=== PATIENT | male | born 1975 | race Caucasian/White ===

== ENCOUNTER → 2019-09-23 16:49 | Outpatient (CLI) | payer OTHER, SELFPAY ==
--- NOTE | 2019-09-23 16:59 | RAD_ITS ---
STUDY: X-RAY - RIGHT FOOT CLINICAL: Male, 43 years old. Right foot pain, 1st MTP joint mostly TECHNIQUE: 3 view(s) of the foot. COMPARISON: None. FINDINGS: Normal talus, calcaneus, and tarsal bones. Mild calcaneal spurring. Normal visualized subtalar, talonavicular, calcaneocuboid, tarsal and tarsometatarsal articulations. Normal metatarsi. Degenerative changes and narrowing at the metatarsophalangeal joint of the great toe. Normal tibial and fibular sesamoid bones. Normal interphalangeal joint of the great toe. Normal phalanges of the great toe. Normal second through fifth metatarsophalangeal joints. Normal interphalangeal joints and phalanges of the lesser toes. Soft tissue edema of the first toe. RAD/Foot min 3 Views IMPRESSION: Degenerative changes and narrowing at the metatarsophalangeal joint of the great toe. Electronically Signed: Brijesh Brooke DO at 23:49 EST Tel [phone], Service support ,
--- NOTE | 2019-09-23 16:59 | RAD_ITS ---
STUDY: X-RAY - RIGHT HAND REASON FOR EXAM: Male, 43 years old. Right hand pain and swelling, no injury TECHNIQUE: 3 view(s) of the hand. COMPARISON: None. FINDINGS: Normal radiocarpal articulation. Normal distal radioulnar joint. Normal visualized carpal bones. Normal carpal articulations Normal carpometacarpal articulation of the thumb. Normal second through fifth carpometacarpal joints. Normal metacarpi. Normal metacarpophalangeal joint of the thumb. Normal interphalangeal joint of the thumb. Normal proximal and distal phalanges of the thumb. Normal metacarpophalangeal joints of the second through fifth fingers. Normal proximal and distal interphalangeal joints of the second through fifth fingers. Normal phalanges of the second through fifth fingers. The soft tissue structures are unremarkable. RAD/Hand Min 3 Views IMPRESSION: Normal x-ray examination of the hand. Electronically Signed: Brijesh Brooke DO at 23:51 EST Tel [phone], Service support ,
[2019-09-23 17:55] LABS: Erythrocyte Sedimentation Rate 7 mm/hr (0-15)
[2019-09-23 18:15] LABS: Hemoglobin A1c 5.9 % (4.2-6.3)
[2019-09-23 18:30] LABS: AST(SGOT) 14 U/L (15-37); Alanine Aminotransfer ALT/SGPT 30 U/L (16-61); Albumin, Serum 3.8 g/dL (3.2-5.0); Alkaline Phosphatase 70 U/L (45-117); Anion Gap 5 (5-15); BUN 15 mg/dL (7-18); BUN/Creat Ratio 11.9 RATIO (10-20); CRP < 2.90 mg/L (0.0-3.0); Calcium,Total 9.3 mg/dL (8.5-10.1); Chloride 106 mmol/L (98-107); Creatinine, Serum 1.26 mg/dL (0.70-1.30); EST Glomerular Filtration Rate 66 mL/min (>60); Est Glom Filt Rate - Afr Amer 80 mL/min (>60); Globulin 3.9 g/dL (2.2-4.2); Glucose 99 mg/dL (74-106); Potassium 3.4 mmol/L (3.5-5.1); Protein, Total 7.7 g/dL (6.4-8.2); Rheumatoid Factor < 10.0 IU/mL (<15); Sodium Level 140 mmol/L (136-145); Uric Acid 5.3 mg/dL (3.5-7.2)
[2019-09-26 09:23] LABS: CCP IgG Antibodies 8 units (0-19)
== END ==
PROVIDERS: PCP Family Medicine; Referring Provider Family Medicine; Visit Provider Family Medicine
DX: M19.90 Unspecified osteoarthritis, unspecified site (principal); M25.50 Pain in unspecified joint; I10 Essential (primary) hypertension; R73.01 Impaired fasting glucose; M79.671 Pain in right foot; M79.641 Pain in right hand
CPT/HCPCS: 36415; 73130; 73630; 80053; 83036; 84550; 85652; 86140; 86200; 86431

== ENCOUNTER 2020-01-23 08:50 | Day surgery (SDC) | payer MEDICAID, SELFPAY ==
[2020-01-23] VITALS (8 sets, daily range): BP systolic 121–152; BP diastolic 72–91; PULSE 68–85; RESP 16–18; TEMP 36.6–36.9; O2SAT 93–100; BMI 27.1
[2020-01-23 09:14] LABS: Absolute Lymphocyte Count 2.48 X10^3/uL (0.83-4.51); Absolute Neutrophil Count 4.8 X10^3/uL (2.0-7.7); Basophil# 0.05 X10^3/uL; Basophil% 0.6 % (0-1); Eosinophil# 0.53 X10^3/uL; Eosinophils% 6.3 % (0-5); Hemoglobin 15.3 g/dL (13.0-16.5); Lymphocyte # 2.48 X10^3/ul (4.0); Lymphocyte % 29.3 % (19-41); Mean Corpuscular Volume 88.2 fL (80-94); Mean Platelet Vol. 9.5 fl (6.2-12.0); Monocyte# 0.53 X10^3/uL; Monocyte% 6.3 % (0-10); NRBC Flagged by Analyzer 0 % (0-5); Neutrophil # 4.83 X10^3/uL (2.7-7.7); Platelet Count 362 K/mm3 (150-450); RBC Distribution Width CV 12.5 % (11.6-14.6); RBC Distribution Width SD 40.8 fl (35.1-43.9); White Blood Count 8.5 K/mm3 (4.4-11.0)
[2020-01-23 09:29] LABS: AST(SGOT) 17 U/L (15-37); Alanine Aminotransfer ALT/SGPT 33 U/L (16-61); Alkaline Phosphatase 73 U/L (45-117); Anion Gap 5 (5-15); BUN 12 mg/dL (7-18); BUN/Creat Ratio 9.2 RATIO (10-20); Calcium,Total 9.4 mg/dL (8.5-10.1); Chloride 102 mmol/L (98-107); EST Glomerular Filtration Rate 63 mL/min (>60); Est Glom Filt Rate - Afr Amer 77 mL/min (>60); Globulin 4.2 g/dL (2.2-4.2); Glucose 104 mg/dL (74-106); Potassium 3.6 mmol/L (3.5-5.1); Protein, Total 8.2 g/dL (6.4-8.2); Sodium Level 137 mmol/L (136-145)
[2020-01-23] MEDS: Lactated Ringers 1,000 ML 75 ML IV (09:50)
[2020-01-23] MEDS: Cefazolin 2 GM in 0.9% Normal Saline 100 ML IV (10:22)
--- NOTE | 2020-01-23 10:34 | RAD_ITS ---
STUDY: X-RAY - RIGHT FOOT CLINICAL: Arthrodesis of the first metatarsophalangeal joint. TECHNIQUE: 3 intraoperative images of the foot. COMPARISON: Radiographs 09/23/2019. FINDINGS: There is arthrodesis of the first metatarsophalangeal joint bridged with an orthopedic plate and screws. 61.4 seconds of fluoroscopy time was used. Electronically Signed: Den Adhikari MD at 15:04 EDT Tel , Service support , RAD/Foot 2 Views
[2020-01-23] MEDS: Bupivacaine Mpf 0.5% 30 ML VIAL (10:35)
--- NOTE | 2020-01-23 12:33 | PCM.DC.POD ---
Discharge Diet: No Restrictions Discharge Activity: Use Walker, - - Use knee roller Weight Bearing Status: No weight bearing - right Keep extremity elevated above heart level: Right Leg Call your doctor if your incision/area has: Continuous Slow Oozing, Sudden Increased Bleeding, Increased Pain/ Swelling, Increased Redness, Foul Smelling Discharge, Swelling at the incision site Call your doctor if you observe: Fever of 101 or Higher, Coldness, Increased Pain, Numbness or Tingling, Calf discomfort, Uncontrolled pain Cleanse incision/area with: Keep Dressing Clean & Dry Additional Instructions: Do not use tobacco products. Place ice pack behind knee for 15 minutes each hour if needed for additional pain control. Allergies/Adverse Reactions: Allergies No Known Allergies Allergy (Verified 01/16/20 13:41) Medications to take at Discharge Lisinopril/Hydrochlorothiazide [Lisinopril-Hctz 20-25 mg Tab] 1 ea PO DAILY 01/16/20 traMADol [Ultram (G)] 50 mg PO DAILY 01/16/20 Oxycodone HCl/Acetaminophen [Percocet 7.5-325 mg Tablet] 1 tab PO Q6H PRN PRN 7 Days #28 tab 01/20/20 Oxycodone HCl/Acetaminophen [Percocet 5-325 mg Tablet] 1 ea PO Q6H PRN PRN 7 Days #28 tab 01/21/20 The following prescriptions were given: Oxycodone HCl/Acetaminophen [Percocet 5-325 mg Tablet] 1 ea PO Q6H PRN PRN 7 Days #28 tab PRN Reason: Pain Score 6-10/10 Transmission Status: Received by [facility] Primary Care Physician: Miguel A Savage DO [Primary Care Provider] - Test Results: Test results from this visit will be discussed in further detail at your follow-up appointment, if applicable. Please Follow Up With: Brigitte Donahue DPM When: 1 week. [facility] Call [phone] sooner if questions/concerns Proposed Discharge Date: 01/23/20
--- NOTE | 2020-01-23 12:37 | OP.PCM_ITS ---
Problem List (1) Right foot pain Status: Acute (2) Arthritis of right foot Status: Acute (3) Other deformities of toe(s) (acquired), right foot Status: Acute Report of Operation Date of Procedure: 01/23/20 Pre-Operative Diagnosis: painful arthritis first metatarsal phalangeal joint right foot Post-Operative Diagnosis: painful arthritis first metatarsal phalangeal joint right foot Surgery/Procedure Performed:: arthrodesis of first metatarsal phalangeal joint with internal fixation, right foot Description of Surgical Findings:: Hemostasis: Well-padded pneumatic right ankle tourniquet, 250 mmHg, 86 minutes Complications: None Materials: 2-0 and 3-0 Vicryl, 4-0 nylon, one Arthrex compression fusion plate with 3 locking screws, 3 cortical screws, 1 cannulated partially-threaded 3.5 screw Specimens: None The patient tolerated the procedure and anesthesia well. He was transported to the PACU vital signs stable vascular status intact to the right lower extremity. He will be discharged home upon continued stability. Prior to leaving the operating room intraoperative radiographs were obtained confirming adequate deformity correction with the hallux in a rectus position with secure placement of the arthrodesis fixation with plate and screws in the desired trajectory and position. Postoperative orders were entered electronically. automatic glove former: Charla - surgeon: Brigitte Donahue DPM Type of Anesthesia:: Local MAC - Preoperative: One-to-one mixture of 1% lidocaine plain and 05% Marcaine plain administered and typical first ray block fashion, 16 cc Postoperative: 0.5% Marcaine plain administered in typical first ray block fashion, 9 cc Specimen's removed: none Estimated Blood Loss (mL): <100 mL Description of Procedure: Indications: This 44-year-old male with significant past medical history of hypertension and tobacco continues to complain of right great toe joint pain. His pain has progressively worsened and he is unable to complete his daily activities and work functions. His pain is located specifically to the first metatarsal phalangeal joint with palpation and with walking activities. It is enlarged and his main complaint is sharpness and stiffness. He is very active and denies a specific trauma. His neurovascular status is intact. Radiographs demonstrate a very large dorsal spur with hypertrophic eminence dorsally and medially to the first metatarsal head. There is also diminished first metatarsal phalangeal joint space noted and this is consistent with advanced arthritis. His preoperative clearance and history and physical exam performed by Dr. Miguel A Savage was reviewed in detail. His preoperative diagnostic data including CBC and CMP also did not demonstrate gross abnormalities. He has failed conservative care including immobilization, insoles, change in shoe gear, rest, [id number] medications, and home therapy. He elects to proceed with surgery at this time. Smoking cessation was discussed and he was advised to stop smoking to allow appropriate healing during the postoperative timeframe. The preoperative indication, planned procedure, possible benefits, risk, complications, and anticipated healing time management were discussed in detail with patient. He understands and elects to proceed with surgery at this time. Informed surgical consent and limb were signed. He understands risk and compl ications include but are not limited to following: pain, swelling, scarring, need for further surgery, hardware failure, recurrence, blood clot, allergic reaction, chronic pain, over or under correction, loss of limb, function, life, loss of sensation. He understands COVID-19 is a current situation and her pain is preventing her from performing her daily activities. He understands the inherent risks with the virus being present in the community and understands significant precautions are being taken to prevent communicable spread during her hospital session. He therefore elects to proceed forward with the procedure at this time. I answered all of his questions. Procedure in detail: The patient was transported to the operating room via cart and placed on the operating table in the supine position. Final verification the patient, surgery, limb designation was performed via the timeout procedure. IV antibiotics were administered preoperatively. The anesthesia team initiated MAC anesthesia. I administered the preoperative local anesthetic. A well padded right ankle tourniquet was placed in a well padded manner. The right lower extremity was prepped and draped in the usual aseptic manner. An Esmarch bandage was used to exsanguinate the right limb and surgery began the following: Attention was first directed to the dorsal aspect of the first metatarsal phalangeal joint which a 4-1/2 cm linear incision was made dorsally along the medial border of the extensor hallucis longus tendon. Blunt dissection was performed down to the capsular layer. Care was taken to identify, protect, and retract all neurovascular structures at this point and throughout the remainder of surgery. The capsule was next incised with a new 15 blade and the soft tissue was reflected off of the first metatarsal head as well as the proximal phalanx base to gain good exposure of the arthrodesis site. A very large dorsal medial and dorsal hypertrophic eminence was identified and there was copious amounts of synovial fluid that was straw-colored coming from this joint. A sagittal saw was used at this time to resect the large spur to gain better visualization of the joint surface. Approximately 80% of the joint surface articular cartilage was already denuded consistent with advanced arthritis. A size 22 reamer was used to denude the articular surface off of the first metatarsal head to good healthy bleeding subchondral bone and the conical reciprocating equipment piece was used to further prepare the proximal phalanx base articular surface in the same manner. This was further fenestrated with a K wire and osteotome to optimize osseous bridging during the healing process. Next, the first metatarsal phalangeal arthrodesis site was placed in a clinically neutral position and was temporarily fixated with a guidewire. This positioning was checked in a weightbearing simulated manner with the top of the Arthrex equipment tray and was further confirmed with intraoperative fl uoroscopy. A dorsal Arthrex compression plate was further temporarily fashioned dorsally and held in place with BB tacks. This was secured distally. Next utilizing proper AO fixation technique, a partially threaded 3.5 cortical screw was applied crossing the arthrodesis site and good compression was achieved. Additional compression was achieved after removing all of the temporary fixation and utilizing the oblong hole of the plate in an eccentric manner. Additional, a cortical locking screw was applied distally and proximally to contour this to the bone. Compression was directly visualized and confirmed with intraoperative fluoroscopy. The deformity was reduced and all hardware was placed with the desired trajectory and position. Saline irrigation was performed this time. Deep closure was achieved with 2-0 Vicryl. The tourniquet was deflated at this time and brisk capillary refill time was noted to all digits of the right foot. No pulsatile bleeding was noted. Further layered closure was achieved with 3-0 Vicryl. The skin was reapproximated with 4-0 nylon utilizing horizontal mattress technique. A postoperative dressing consisting of Adaptic soaked Betadine, 4 x 4 gauze, Kerlix, abdominal pad, and Coban was applied. The post operative local anesthesia injection was also administered at this time. Additionally, a well-padded pneumatic's posterior mold splint was applied with the surgical limb in a rectus position. After procedure: The patient tolerated the procedure and anesthesia well. He was transferred to the PACU with vital signs stable and vascular status intact to the right lower extremity. He was advised to maintain a strict nonweightbearing status. He was advised to ice and elevate for pain and inflammation control. He was also provided with a postoperative pain medication prescription, Percocet. He was advised on safe and proper use. He was advised to keep his splint and dressing clean, dry, and intact until follow-up next week. He has assistive devices to help him maintain a nonweightbearing status including a walker and a knee roller. Postoperative x-rays were reviewed as noted. He will follow-up with the [facility] next week. Brigitte Donahue DPM, [facility] - Complications none - Admit VTE Documentation VTE Present on Admission: No VTE Mechan Device Prophylaxis: SCD's VTE Pharm Prophylaxis ordered?: No Reason prophylaxis not ordered:: Procedure Not Indicated
--- NOTE | 2020-01-23 13:00 | RAD_ITS ---
STUDY: X-RAY - RIGHT FOOT CLINICAL: Status post arthrodesis of the first metatarsophalangeal joint. TECHNIQUE: 3 view(s) of the foot. COMPARISON: Radiographs 09/23/2019. FINDINGS: There is a small plantar calcaneal enthesophyte. Normal visualized subtalar, talonavicular, calcaneocuboid, tarsal and tarsometatarsal articulations. There is arthrodesis of the metatarsophalangeal joint of the great toe bridge within an orthopedic plate and screws. Normal tibial and fibular sesamoid bones. Normal interphalangeal joint of the great toe. Normal phalanges of the great toe. Normal second through fifth metatarsophalangeal joints. Normal interphalangeal joints and phalanges of the lesser toes. There is an overlying splint. RAD/Foot min 3 Views IMPRESSION: Uncomplicated arthrodesis of the first metatarsophalangeal joint. Electronically Signed: Den Adhikari MD at 15:32 EDT Tel , Service support ,
== END 2020-01-23 14:09 | disposition home or self-care (01) ==
LOC: SDC 08:53 → AC 08:53
PROVIDERS: PCP Family Medicine; Referring Provider Podiatrist; Visit Provider Podiatrist
PROC: (CPT 28750; principal; 2020-01-23 10:15)
DX: M20.5X1 Other deformities of toe(s) (acquired), right foot (principal); M19.071 Primary osteoarthritis, right ankle and foot; I10 Essential (primary) hypertension; M54.9 Dorsalgia, unspecified; G89.29 Other chronic pain; F17.200 Nicotine dependence, unspecified, uncomplicated; Z79.899 Other long term (current) drug therapy; Z11.59 Encounter for screening for other viral diseases
CPT/HCPCS: 28750; 73620; 73630; 76000; 80053; 85025; 87635; C1713; G2023; J7120; U0004

== ENCOUNTER 2020-04-13 14:29 | Outpatient (RCR) | payer MEDICAID, SELFPAY ==
[2020-01-23 09:22] VITALS: BMI 27.1
--- NOTE | 2020-04-13 15:51 | HP.PTEVAL_ITS ---
Patient's Visit Information SLIM MANCIA Jr. is a 44 year old M referred to Physical Therapy by Dr. Brigitte Donahue DPM with a diagnosis of R s/p first metatarsla phal arthrodesis and B PF. Date of Evaluation: 04/13/20 Physical Therapist: WADE Matson - Visit Plan Frequency: 2x /Week Duration: 2 Months Plan: 2X/ week per pt request for 4-8 weeks for gait training, R ankle AROM, R ankle strength, balance and proprioception, pain and edema control (TENS, US) with HEP.... - Subjective Pt reports that he can not rmember when he had surgery but referral said 01-23-2020. He has to have another surgery because the back of his foot hurts. He reports that they put pins and plates in his big toe cause he dropped a log on his big toe at work and it shattered his bone. He was in a cast for awhile and now he is in a walking boot. He currently has pain on the medial side of his big toe and along his heel. He has numbness at the top of the big toe. Pt has heel spurs. Pt will be having surgery in the next couple of month if cream and PT do not help. He just got pain cream 4 days ago... has helped some. He has no pain in the boot but has toe pain in a regular shoe. - Pain R big toe pain Pain Intensity (Out of 10): 0 R achilles pain Pain Intensity (Out of 10): 0 Comment: 3-4/10 with standing or running. - Objective R ankle AROM: -4 from full DF degrees to 125 degrees PF, 3 degrees EV and 20 degrees INV. R girth med-lat mal, fig 8, and met heads 27.5, 56, 26.4. L 27.6, 56.2, 25.7. R ankle MMT: DF 4-/5, NV 4-/5, IN 3+/5 and EV 3+/5. L ankle MMT 4+/5 all 4 planes of motion. Gait: walks with not putting his great toe down. pt reports Dr does not want him to put pressure through his R great toe at this time. Extremely tight R gastroc and tight on the L as well. No movement in Great toe... fused per pt. Palpation: Tender R achilles more toward the calcanous and plantar fascia on the Right. - Goals Goal 1:: I HEP Goal Time Frame: 6-8 Weeks Goal 2:: Increase R ankle strength on the R by 1/2 muscle grade (at the time of eval: R ankle MMT: DF 4-/5, NV 4-/5, IN 3+/5 and EV 3+/5). Goal Time Frame: 6-8 Weeks Goal 3:: Increase R gastroc muscle length to increase R ankle DF to 5 degrees DF Goal Time Frame: 6-8 Weeks Goal 4:: Be able to walk with normal gait pattern with no pain in normal shoe Goal Time Frame: 6-8 Weeks Goal 5:: Decrease R ankle achilles pain to less than 1/10 with ADL's. Goal Time Frame: 6-8 Weeks - Rehabilitation Potential Rehabilitation Potential: Good - Anticipated Interventions Patient/Client Instruction: Educate patient on: Condition, Plan of Care For the Purpose of:: To decrease pain, To decrease swelling/inflammation, To increase ROM, To improve nutrient delivery to tissue, To improve muscle performance and motor function, To improve ability to perform ADL's, To increase tolerance to activity/condition/position, To improve performance and independence with ADL's, To decrease level of supervision to perform tasks, To improve ability of physical actions for home/community/work/leisure, To improve gait and locomotor functions, To improve health of tissue, To decrease soft tissue restriction, To increase flexibility/ROM, To improve balance, To improve safety with gait Therapeutic Exercise to Include: Strength training, Endurance training, Balance training, Flexibilty training, Gait and locomotor training, Passive ROM, Active ROM For the Purpose of:: To decrease pain, To decrease swelling/inflammation, To improve nutrient delivery to tissue, To increase oxygenation perfusion, To improve muscle performance and motor function, To improve ability to perform ADL's, To increase tolerance to activity/condition/position, To improve performance and independence with ADL's, To decrease level of supervision to perform tasks, To improve gait and locomotor functions, To improve health of tissue, To decrease soft tissue restriction, To increase flexibility/ROM, To improve balance, To improve safety with gait Functional Training to Include: Gait training For the Purpose of:: To improve gait and locomotor functions Manual Therapy Techniques to Include: Passive ROM, Soft tissue mobilization For the Purpose of:: To increase ROM, To improve muscle performance and motor function, To increase flexibility/ROM IF ES: Yes Ultrasound (thermal/non thermal): Yes For the Purpose of:: To decrease pain, To decrease swelling/inflammation, To increase ROM, To improve nutrient delivery to tissue Thank you for the opportunity to evaluate your patient. For Medicare and Medicare HMO plans, please review the plan of care and approve it. It will need to be FAXED BACK to us at [phone] for Medicare purposes. For Medicare only, by signing this I certify the plan of care. Please let me know if there are questions or concerns regarding this plan of care. Physician Signature: Date:
--- NOTE | 2020-05-03 16:40 | HP.PT.NRP ---
SLIM Rosado BLANCHE Green was seen in my office for initial evaluation on 04/13/20. The following Plan of Care was established for this patient: Initial Frequency: 2x /Week Initial Duration: 2 Months Patient/Client Instruction: Educate patient on: Condition, Plan of Care For the Purpose of:: To decrease pain, To decrease swelling/inflammation, To increase ROM, To improve nutrient delivery to tissue, To improve muscle performance and motor function, To improve ability to perform ADL's, To increase tolerance to activity/condition/position, To improve performance and independence with ADL's, To decrease level of supervision to perform tasks, To improve ability of physical actions for home/community/work/leisure, To improve gait and locomotor functions, To improve health of tissue, To decrease soft tissue restriction, To increase flexibility/ROM, To improve balance, To improve safety with gait Therapeutic Exercise to Include: Strength training, Endurance training, Balance training, Flexibilty training, Gait and locomotor training, Passive ROM, Active ROM For the Purpose of:: To decrease pain, To decrease swelling/inflammation, To improve nutrient delivery to tissue, To increase oxygenation perfusion, To improve muscle performance and motor function, To improve ability to perform ADL's, To increase tolerance to activity/condition/position, To improve performance and independence with ADL's, To decrease level of supervision to perform tasks, To improve gait and locomotor functions, To improve health of tissue, To decrease soft tissue restriction, To increase flexibility/ROM, To improve balance, To improve safety with gait Functional Training to Include: Gait training For the Purpose of:: To improve gait and locomotor functions Manual Therapy Techniques to Include: Passive ROM, Soft tissue mobilization For the Purpose of:: To increase ROM, To improve muscle performance and motor function, To increase flexibility/ROM IF ES: Yes Ultrasound (thermal/non thermal): Yes For the Purpose of:: To decrease pain, To decrease swelling/inflammation, To increase ROM, To improve nutrient delivery to tissue This patient was last seen in our office 04/13/20. Pertinent comments regarding their Physical therapy will appear below: [facility]. Pt has no showed for several appointments since his initial eval and has been called and asked to confirm if he would be returning and he has not done so and no showed the next appointment after the reminder call. He will be discharged at this time. At this point I will be discontinuing this patient from physical therapy. I would be happy to see this patient again in the future if found appropriate by the physician. Thank you! Amelie Landa, MPT
== END 2020-04-13 19:00 | disposition home or self-care (01) ==
LOC: PT 14:29
PROVIDERS: PCP Family Medicine; Referring Provider Podiatrist; Visit Provider Podiatrist
DX: M72.2 Plantar fascial fibromatosis (principal); Z98.890 Other specified postprocedural states
CPT/HCPCS: 97161

== ENCOUNTER → 2020-07-23 13:55 | Outpatient (CLI) | payer MEDICAID, SELFPAY ==
[2020-01-23 09:22] VITALS: BMI 27.1
--- NOTE | 2020-07-23 13:58 | CT_ITS ---
STUDY: CT RIGHT FOOT REASON FOR EXAM: Male, 44 years old. Right foot pain, arthrodesis 01/2020, avascular necrosis, hardware pain. MAR included. RADIATION DOSAGE (If Supplied By Facility): CTDIvol = ( 15.35 ) mGy, DLP = ( 397.20 ) mGycm TECHNIQUE: Thin section transaxial imaging of the foot was obtained, with sagittal and coronal reconstructed images. 3-D images were reconstructed. Individualized dose optimization techniques were used for this CT. COMPARISON: None. FINDINGS: Diffuse osteopenia otherwise normal talus, calcaneus, and tarsal bones. Normal visualized tibiotalar, subtalar, talonavicular, calcaneocuboid, tarsal and tarsometatarsal articulations. Normal metatarsi. Postoperative changes with fixation plate and multiple screws through the metatarsal phalangeal joint of the great toe. Normal tibial and fibular sesamoid bones. Normal interphalangeal joint of the great toe. Normal phalanges of the great toe. Normal second through fifth metatarsophalangeal joints. Normal interphalangeal joints and phalanges of the lesser toes. The soft tissue structures are unremarkable. There is no demonstrated fracture. CT/Extremity Lower without Contra IMPRESSION: Postoperative changes at the first metatarsophalangeal joint. No acute fracture or subluxation. No distinct bony lesion. Electronically Signed: Sita Lopez MD at 0:23 EST , Service support ,
== END ==
PROVIDERS: PCP Family Medicine; Referring Provider Podiatrist; Visit Provider Podiatrist
DX: M79.671 Pain in right foot (principal); T85.698A Other mechanical complication of other specified internal prosthetic devices, implants and grafts, initial encounter; M96.0 Pseudarthrosis after fusion or arthrodesis; M87.9 Osteonecrosis, unspecified; Z98.1 Arthrodesis status
CPT/HCPCS: 73700

== ENCOUNTER → 2023-01-04 | Outpatient (CLI) | payer MEDICAID, SELFPAY ==
[2023-01-04 17:41] LABS: Absolute Lymphocyte Count 3.62 X10^3/uL (0.83-4.51); Absolute Neutrophil Count 7.8 X10^3/uL (2.0-7.7); Basophil# 0.09 X10^3/uL; Basophil% 0.7 % (0-1); Eosinophil# 0.33 X10^3/uL; Eosinophils% 2.6 % (0-5); Hematocrit 46.4 % (40-54); Hemoglobin 15.2 g/dL (13.0-16.5); Lymphocyte # 3.62 X10^3/ul (0.83-4.51); Lymphocyte % 28.8 % (19-41); Mean Corp Hgb Conc 32.8 g/dL (32-36); Mean Corpuscular Hgb 29.3 pg (27.0-32.0); Mean Corpuscular Volume 89.6 fL (80-94); Mean Platelet Vol. 9.8 fl (6.2-12.0); Monocyte# 0.68 X10^3/uL; Monocyte% 5.4 % (0-10); NRBC Flagged by Analyzer 0 % (0-5); Neutrophil # 7.77 X10^3/uL (2.7-7.7); Platelet Count 407 K/mm3 (150-450); RBC Distribution Width CV 13.2 % (11.6-14.6); RBC Distribution Width SD 43.8 fl (35.1-43.9); Red Blood Count 5.18 M/mm3 (4.6-6.2); White Blood Count 12.6 K/mm3 (4.4-11.0)
[2023-01-04 18:21] LABS: BUN 12 mg/dL (7-18); Creatinine, Serum 1.21 mg/dL (0.70-1.30); EST Glomerular Filtration Rate 68 mL/min (>60); Glucose 93 mg/dL (74-106)
[2023-01-04 18:22] LABS: AST(SGOT) 20 U/L (15-37); Alanine Aminotransfer ALT/SGPT 38 U/L (16-61); Albumin, Serum 3.9 g/dL (3.2-5.0); Alkaline Phosphatase 76 U/L (45-117); Anion Gap 5 (5-15); BUN/Creat Ratio 9.9 RATIO (10-20); Calcium,Total 9.6 mg/dL (8.5-10.1); Chloride 109 mmol/L (98-107); Cholesterol 181 mg/dL (200); Est Glom Filt Rate - Afr Amer 82 mL/min (>60); High Density Lipoprotein 31 mg/dL; Potassium 4.2 mmol/L (3.5-5.1); Protein, Total 7.9 g/dL (6.4-8.2); Sodium Level 142 mmol/L (136-145); Triglycerides 138 mg/dL; Very Low Density Lipoprotein 28 mg/dL (5-40)
== END | disposition home or self-care (01) ==
LOC: BFHLAB 15:44
PROVIDERS: PCP Family Medicine; Referring Provider Family Medicine; Visit Provider Family Medicine
DX: Z00.00 Encounter for general adult medical examination without abnormal findings (principal)
CPT/HCPCS: 36415; 80053; 80061; 85025

== ENCOUNTER → 2024-10-16 | Outpatient (CLI) | payer MEDICAID, SELFPAY ==
--- NOTE | 2024-10-16 | CYSPIN_PTH ---
PATIENT: SLIM MANCIA Jr. LOC: [facility] U#:[id number] AGE/SX: 48/M ROOM: RE10/16/[address]: Dr. Miguel A Savage DO : 1975 BED: DIS: 10/16/2024 SPEC #: [id number] RECD: 10/16/24 13:21 STATUS: KAREN COELLO #: [id number] VAHE: 10/16/24 00:[address]: Miguel A Savage DEPT: CYTOLOGY RECD BY: J Carlos Rivas Tissues: Urine Procedures: Pap Stain (control) Special Stain Group II Cytospin Fluid HEADER OPERATION: Not noted PRE-OP DIAGNOSIS: Hematuria, proteinuria TISSUE SUBMITTED: Urine for cytology DIAGNOSIS CYTOLOGY Urine for cytology (cytospins): Negative for high grade urothelial carcinoma, [facility] System Category II (MDGUC). Mild acute inflammation. See comment. 10/17/2024 COMMENT The [place] System for urine cytology diagnostic categorization was used in the evaluation of this case. Clinical correlation and appropriate follow up are necessary. CYTOLOGY STUDY Slides are reviewed. CYTOLOGY GROSS Received is 75 ml of dark-yellow cloudy fluid labeled with the patient's name and and designated per the requisition as urine. Submitted for cytology preparation. Mr 10/16/2024 TC:2 CPT: 12049
[2024-10-16 09:10] LABS: Cytology, Body Fluid / CSF SEE PATHOLOGY REPORT
[2024-10-16 12:25] LABS: Absolute Lymphocyte Count 2.29 X10^3/uL (0.83-4.51); Absolute Neutrophil Count 4.1 X10^3/uL (2.0-7.7); Basophil# 0.08 X10^3/uL; Basophil% 1.1 % (0-1); Eosinophil# 0.28 X10^3/uL; Eosinophils% 3.8 % (0-5); Hematocrit 47.5 % (40-54); Hemoglobin 15.9 g/dL (13.0-16.5); Lymphocyte # 2.29 X10^3/ul (0.83-4.51); Lymphocyte % 31.2 % (19-41); Mean Corp Hgb Conc 33.5 g/dL (32-36); Mean Corpuscular Hgb 29.8 pg (27.0-32.0); Monocyte# 0.53 X10^3/uL; Monocyte% 7.2 % (0-10); NRBC Flagged by Analyzer 0 % (0-5); Neutrophil # 4.14 X10^3/uL (2.7-7.7); Neutrophil % 56.4 % (47-70); Platelet Count 353 K/mm3 (150-450); RBC Distribution Width CV 13.2 % (11.6-14.6); Red Blood Count 5.34 M/mm3 (4.6-6.2); White Blood Count 7.3 K/mm3 (4.4-11.0)
[2024-10-16 12:38] LABS: Color, Urine Yellow (Yellow); Glucose, Dipstick Normal (Normal); Ketone-Dipstick Negative (Negative); Leukocyte Esterase-Dipstick Negative /ul (Negative); Nitrite-Dipstick Negative (Negative); Occult Blood-Urine 10 /ul (Negative); Protein-Dipstick Negative (Negative); Specific Gravity, Urine 1.025 (1.002-1.030); Urine Bilirubin Dipstick Negative (Negative); Urine Clarity Clear (Clear); Urine Urobilinogen Normal (Normal)
[2024-10-16 12:54] LABS: ALB/GLOB Ratio 0.9 RATIO (0.9-2.4); AST(SGOT) 25 U/L (15-37); Alanine Aminotransfer ALT/SGPT 39 U/L (16-61); Albumin, Serum 3.8 g/dL (3.2-5.0); Alkaline Phosphatase 72 U/L (45-117); Anion Gap 4 (5-15); BUN 13 mg/dL (7-18); BUN/Creat Ratio 10.8 RATIO (10-20); Calcium,Total 9.6 mg/dL (8.5-10.1); Chloride 108 mmol/L (98-107); Cholesterol 196 mg/dL (200); EST Glomerular Filtration Rate 68 mL/min (>60); Est Glom Filt Rate - Afr Amer 83 mL/min (>60); Globulin 4.2 g/dL (2.2-4.2); Glucose 92 mg/dL (74-106); High Density Lipoprotein 34 mg/dL; Potassium 4.3 mmol/L (3.5-5.1); Sodium Level 139 mmol/L (136-145); Triglycerides 119 mg/dL; Very Low Density Lipoprotein 24 mg/dL (5-40)
[2024-10-16 13:10] LABS: Microalbumin,Random Urine 13.2 mg/L (NO RANGE EST.); Microalbumin:Creatinine Ratio 5.9 mg/g CRE (<30 mg/g CRE)
== END | disposition home or self-care (01) ==
LOC: BFHLAB 09:02
PROVIDERS: PCP Family Medicine; Visit Provider Family Medicine
DX: Z00.00 Encounter for general adult medical examination without abnormal findings (principal); R80.9 Proteinuria, unspecified; R31.9 Hematuria, unspecified
CPT/HCPCS: 36415; 80053; 80061; 81002; 82043; 82570; 85025; 88108; 88313